=== PATIENT | male | born 1985 | race Hispanic/Latino ===

== ENCOUNTER 2018-06-05 12:43 | Emergency (ER) | payer OTHER ==
--- OUTSIDE RECORDS SUMMARY | 2018-06-05 12:45 | XMS REPORT ---
:1985 [facility] [address] [place] [address] Care Team Providers Name Role Phone Unavailable Unavailable Unavailable Problems This patient has no known problems. Allergies, Adverse Reactions, Alerts This patient has no known allergies or adverse reactions. Medications This patient has no known medications. Encounters Start End Encounter Admission Attending Care Care Encounter Date/Time Date/Time Type Type Clinicians Facility Department ID 2017-05-15 Inpatient [facility] MED [id number] 18:50:00
--- NOTE | 2018-06-05 13:33 | RAD REPORT ---
EXAM DESCRIPTION: Delia Headley (2 Views)06/05/2018 1:28 pm CLINICAL HISTORY: Cough COMPARISON: None FINDINGS: The lungs appear clear of acute infiltrate. The heart is normal size IMPRESSION: No acute abnormalities displayed
[2018-06-05 14:03] LABS: Absolute Lymphocytes (CBC) 1.1 K/uL (0.7-4.9); Absolute Monocytes 0.4 K/uL (0.1-1.3); Absolute Neutrophil 6.6 K/uL (1.8-8.0); Basophils % 0.2 % (0-1.3); Eosinophils % 0.6 % (0-4.4); Hematocrit 46.5 % (39.6-49.0); Lymphocytes % 13.4 % (15.3-44.8); MPV 8.8 fL (7.6-11.3); Monocytes % 4.4 % (3.3-12.3); RBC Red Blood Cell Count 5.37 M/uL (4.33-5.43)
[2018-06-05 14:24] LABS: BUN Blood Urea Nitrogen 10 mg/dL (7-18); Bicarbonate 30 mmol/L (21-32); Creatine Phosphokinase 191 U/L (39-308); Glucose Level 85 mg/dL (74-106); Potassium 4.2 mmol/L (3.5-5.1); Sodium Level 144 mmol/L (136-145); Troponin (Emerg Dept Use Only) < 0.02 ng/mL (0.0-0.045)
[2018-06-05] MEDS ORDERED: NA CHLORIDE 0.9% 1,000 ML ONE ×2 (14:32→15:07)
[2018-06-05] MEDS ORDERED: ONDANSETRON 4 MG (ODT) TAB ONE (14:32)
--- NOTE | 2018-06-05 16:45 | EKG ---
Test Date: 2018-06-05 Test Time: 13:39:42 Flotation Tank Operator: ANDREA MEASUREMENT RESULTS: Intervals: Rate: 83 AR: 138 QRSD: 92 QT: 360 QTc: 423 [place]: P: 33 AR: 138 QRS: 61 T: 21 INTERPRETIVE STATEMENTS: Normal sinus rhythm with sinus arrhythmia Normal ECG No previous ECG available for comparison Electronically Signed On 06-05-18 16:44:00 PROFESSOR OF MEDICINE by Shade Buenrostro
--- NOTE | 2018-06-05 18:08 | ER ---
Nurse's Notes [facility] Name: Woo Tracy Age: 33 yrs Sex: Male : 1985 Arrival Date: 06/05/2018 Time: 12:46 Bed 15 Private MD: None, None Diagnosis: Tachycardia, unspecified;Essential (primary) hypertension Presentation: 06/05 12:50 Presenting complaint: Productive cough with green sputum and headache x 1 week, N/V hb today. Pt reports home BP 129/111, HR 140. Transition of care: patient was not received from another setting of care. Onset of symptoms was June 05, 2018. Risk Assessment: Do you want to hurt yourself or someone else? Patient reports no desire to harm self or others. Care prior to arrival: None. 12:50 Method Of Arrival: Ambulatory hb 12:50 Acuity: VANESSA 3 hb 14:00 Initial Sepsis Screen: Does the patient meet any 2 criteria? No. Patient's initial ph sepsis screen is negative. Does the patient have a suspected source of infection? No. Patient's initial sepsis screen is negative. Historical: - Allergies: 12:52 No Known Allergies; hb - Home Meds: 12:52 unkown BP med [Active]; hb - PMHx: 12:52 Hypertension; hb - PSHx: 12:52 None; hb - Immunization history:: Adult Immunizations up to date. - Social history:: Smoking status: Patient/guardian denies using tobacco. - Ebola Screening: : No symptoms or risks identified at this time. Screenin:33 Abuse screen: Denies threats or abuse. Denies injuries from another. Nutritional ph screening: No deficits noted. Tuberculosis screening: No symptoms or risk factors identified. Fall Risk None identified. Assessment: 13:53 General: Appears in no apparent distress. comfortable, well groomed, well developed, ph well nourished, Behavior is calm, cooperative, appropriate for age, Denies fever. Pain: Complains of pain in right parietal area and right side of the back of head Quality of pain is described as pressure. Neuro: Oriented to. 15:30 Reassessment: Patient appears in no apparent distress at this time. Patient and/or ph family updated on plan of care and expected duration. Pain level reassessed. Patient is alert, oriented x 3, equal unlabored respirations, skin warm/dry/pink. 16:30 Reassessment: Patient appears in no apparent distress at this time. Patient and/or ph family updated on plan of care and expected duration. Pain level reassessed. Patient is alert, oriented x 3, equal unlabored respirations, skin warm/dry/pink. 17:30 Reassessment: Patient appears in no apparent distress at this time. Patient and/or ph family updated on plan of care and expected duration. Pain level reassessed. Patient is alert, oriented x 3, equal unlabored respirations, skin warm/dry/pink. Pty resting quietly, denies nausea or pain, awaiting results of repeat cardiac enzymes. 18:34 Reassessment: Patient appears in no apparent distress at this time. Patient and/or ph family updated on plan of care and expected duration. Pain level reassessed. Patient is alert, oriented x 3, equal unlabored respirations, skin warm/dry/pink. Pt states that he will follow up w/ strap machine operator, d/c home w/ family. Vital Signs: 12:52 BP 148 / 96; Pulse 116; Resp 18; Temp 98.5; Pulse Ox 100% on R/A; Pain 4/10; hb 14:34 BP 134 / 84; Pulse 91; Resp 18; Pulse Ox 98% ; ph 14:34 Pulse 130; ph 16:18 BP 123 / 83; Pulse 103; Resp 16; Pulse Ox 99% on R/A; ph 14:34 after vomiting ph ED Course: 12:46 Patient arrived in ED. sb2 12:47 None, None is Private Physician. sb2 12:52 Triage completed. hb 12:52 Arm band placed on left wrist. hb 12:53 [facility] snw 12:53 Benedicto Nix MD is Attending Physician. snw 13:25 X-ray completed. Patient tolerated procedure well. Patient moved to radiology via sw wheelchair. Patient moved back from radiology. 13:26 Chest Pa And Lat (2 Views) XRAY In Process Unspecified. EDMS 13:36 Jessica Infante, SHERRON is Primary Nurse. ph 13:44 EKG done, by java technical architect. reviewed by Junie VASQUEZ. dt2 13:46 Initial lab(s) drawn, by me, sent to lab. Inserted saline lock: 20 gauge in right [facility] antecubital area, using aseptic technique. Blood collected. 13:49 Flu and/or RSV swab sent to lab. [facility] 14:00 Patient has correct armband on for positive identification. Placed in gown. Bed in low ph position. Call light in reach. Side rails up X 1. [facility] on. Pulse ox on. NIBP on. Door closed. Noise minimized. Lights dimmed. Warm blanket given. 17:27 EKG done, by java technical architect. dt2 18:07 Shade Buenrostro MD is Referral Physician. snw 18:35 No provider procedures requiring assistance completed. IV discontinued, intact, ph bleeding controlled, No redness/swelling at site. Pressure dressing applied. Administered Medications: 14:20 Drug: NS 0.9% 1000 ml Route: IV; Rate: 1 bolus; Site: right antecubital; ph 18:38 Follow up: Response: No adverse reaction; IV Status: Completed infusion ph 14:20 Drug: Zofran 4 mg Route: PO; ph 18:38 Follow up: Response: No adverse reaction ph Outcome: 18:07 Discharge ordered by . snw 18:37 Discharged to home ambulatory, with family. ph 18:37 Condition: good 18:37 Discharge instructions given to patient, Instructed on discharge instructions, follow up and referral plans. Demonstrated understanding of instructions, follow-up care. 18:39 Patient left the ED. ph Signatures: Dispatcher [employer] EDMS Junie Rivera, EDELMIRA-C ELECTROMECHANICAL INSPECTOR-Csnw Jessica Infante RN SHERRON Jessica Peng Heather, RN RN Gayle Erickson 3 Mary Elam 2 Sharon Peguero 2
--- NOTE | 2018-06-05 18:08 | EDPHYS ---
Physician Documentation [facility] Name: Woo Tracy Age: 33 yrs Sex: Male : 1985 Arrival Date: 06/05/2018 Time: 12:46 Bed 15 Private MD: None, None ED Physician Benedicto Nix HPI: 06/05 13:02 This 33 yrs old Male presents to ER via Ambulatory with complaints of High snw Blood Pressure. 13:02 The patient has elevated blood pressure and discovered this at home, with a home snw device. Onset: The symptoms/episode began/occurred x 1 week with more elevated blood pressure and HR than normal. Associated signs and symptoms: Pertinent positives: headache, vomiting, palpitations. Severity of symptoms: At its worst the blood pressure was DBP > 100. The patient has not experienced similar symptoms in the past. It is unknown whether or not the patient has recently seen a physician. Historical: - Allergies: 12:52 No Known Allergies; hb - Home Meds: 12:52 unkown BP med [Active]; hb - PMHx: 12:52 Hypertension; hb - PSHx: 12:52 None; hb - Immunization history:: Adult Immunizations up to date. - Social history:: Smoking status: Patient/guardian denies using tobacco. - Ebola Screening: : No symptoms or risks identified at this time. ROS: 13:01 Constitutional: Negative for fever, chills, and weight loss, Eyes: Negative for injury, snw pain, redness, and discharge, ENT: Negative for injury, pain, and discharge, Neck: Negative for injury, pain, and swelling. 13:01 Respiratory: Negative for shortness of breath, cough, wheezing, and pleuritic chest pain. 13:01 Back: Negative for injury and pain, : Negative for injury, bleeding, discharge, and swelling, MS/Extremity: Negative for injury and deformity, Skin: Negative for injury, rash, and discoloration, Neuro: Negative for headache, weakness, numbness, tingling, and seizure. 13:01 Cardiovascular: Positive for palpitations, tachycardia, high blood pressure. 13:01 Abdomen/GI: Positive for vomiting. Exam: 13:00 Eyes: Pupils equal round and reactive to light, extra-ocular motions intact. Lids and snw lashes normal. Conjunctiva and sclera are non-icteric and not injected. Cornea within normal limits. Periorbital areas with no swelling, redness, or edema. ENT: Nares patent. No nasal discharge, no septal abnormalities noted. Tympanic membranes are normal and external auditory canals are clear. Oropharynx with no redness, swelling, or masses, exudates, or evidence of obstruction, uvula midline. Mucous membranes moist. Neck: Trachea midline, no thyromegaly or masses palpated, and no cervical lymphadenopathy. Supple, full range of motion without nuchal rigidity, or vertebral point tenderness. No Meningismus. Chest/axilla: Normal chest wall appearance and motion. Nontender with no deformity. No lesions are appreciated. Respiratory: Lungs have equal breath sounds bilaterally, clear to auscultation and percussion. No rales, rhonchi or wheezes noted. No increased work of breathing, no retractions or nasal flaring. Abdomen/GI: Soft, non-tender, with normal bowel sounds. No distension or tympany. No guarding or rebound. No evidence of tenderness throughout. Back: No spinal tenderness. No costovertebral tenderness. Full range of motion. Skin: Warm, dry with normal turgor. Normal color with no rashes, no lesions, and no evidence of cellulitis. MS/ Extremity: Pulses equal, no cyanosis. Neurovascular intact. Full, normal range of motion. Neuro: Awake and alert, GCS 15, oriented to person, place, time, and situation. Cranial nerves II-XII grossly intact. Motor strength 5/5 in all extremities. Sensory grossly intact. Cerebellar exam normal. Normal gait. 13:00 Constitutional: The patient appears alert, awake, uncomfortable. 13:00 Head/face: Noted is petechiae to upper cheeks s/p vomiting/cough. 13:00 Cardiovascular: Rate: tachycardic, Rhythm: regular, Heart sounds: normal. Vital Signs: 12:52 BP 148 / 96; Pulse 116; Resp 18; Temp 98.5; Pulse Ox 100% on R/A; Pain 4/10; hb 14:34 BP 134 / 84; Pulse 91; Resp 18; Pulse Ox 98% ; ph 14:34 Pulse 130; ph 16:18 BP 123 / 83; Pulse 103; Resp 16; Pulse Ox 99% on R/A; ph 14:34 after vomiting ph MDM: 12:54 Patient medically screened. snw 17:55 Data reviewed: vital signs, nurses notes. Data interpreted: Pulse oximetry: on room air snw is 99 %. Interpretation: normal. Counseling: I had a detailed discussion with the patient and/or guardian regarding: the historical points, exam findings, and any diagnostic results supporting the discharge/admit diagnosis, lab results, radiology results, the need for outpatient follow up. Special discussion: Based on the patient's history, exam, and Dx evaluation, there is no indication for emergent intervention or inpatient Tx. It is understood by the patient/guardian that if the Sx's persist or worsen they need to return immediately for re-evaluation. Based on the history and exam findings, there is no indication for further emergent testing or inpatient evaluation. I discussed with the patient/guardian the need to see the retirement benefits specialist for further evaluation of the symptoms. I discussed with the patient/guardian the need to see the primary care provider for further evaluation of the symptoms. ED course: Encouraged to f/u cardiology second to very strong family history of heart disease. 06/05 12:54 Order name: Flu; Complete Time: 14:22 snw 06/05 13:00 Order name: TSH; Complete Time: 14:28 snw 06/05 13:00 Order name: CBC with Diff; Complete Time: 14:13 snw 06/05 13:00 Order name: Chem 7; Complete Time: 14:28 snw 06/05 13:00 Order name: Troponin (emerg Dept Use Only); Complete Time: 14:28 snw 06/05 13:00 Order name: CPK; Complete Time: 14:28 snw 06/05 13:00 Order name: Chest Pa And Lat (2 Views) XRAY; Complete Time: 13:42 snw 06/05 13:01 Order name: EKG; Complete Time: 13:02 snw 06/05 13:01 Order name: EKG - Nurse/Tech; Complete Time: 13:51 snw 06/05 14:29 Order name: Recheck Vital Signs; Complete Time: 14:41 snw 06/05 17:03 Order name: Troponin (emerg Dept Use Only); Complete Time: 18:09 snw 06/05 17:03 Order name: EKG; Complete Time: 17:04 snw Administered Medications: 14:20 Drug: NS 0.9% 1000 ml Route: IV; Rate: 1 bolus; Site: right antecubital; ph 18:38 Follow up: Response: No adverse reaction; IV Status: Completed infusion ph 14:20 Drug: Zofran 4 mg Route: PO; ph 18:38 Follow up: Response: No adverse reaction ph Disposition: 19:00 Co-signature as Attending Physician, Benedicto Nix MD. rn Disposition: 06/05/18 18:07 Discharged to Home. Impression: Tachycardia, unspecified, Essential (primary) hypertension. - Condition is Stable. - Discharge Instructions: Hypertension, Heart Disease Prevention, DASH Eating Plan, Rehydration, Adult, Managing Your Hypertension. - Work release form, Medication Reconciliation Form, Thank You Letter, Antibiotic Education, Prescription Opioid Use form. - Follow up: Private Physician; When: 2 - 3 days; Reason: Recheck today's complaints, Continuance of care, Re-evaluation by your physician. Follow up: Emergency Department; When: As needed; Reason: Worsening of condition. Follow up: Shade Buenrostro; When: 1 - 2 days; Reason: Recheck today's complaints, Continuance of care. Signatures: Dispatcher [employer] EDMS Junie Rivera, RANGE MECHANIC-C RANGE MECHANIC-Csnw Benedicto Nix MD MD rn Hall, Patricia, RN RN ph Baxter, Heather, RN RN Corrections: (The following items were deleted from the chart) 18:39 18:07 06/05/2018 18:07 Discharged to Home. Impression: Tachycardia, unspecified; ph Essential (primary) hypertension. Condition is Stable. Discharge Instructions: Hypertension, Heart Disease Prevention, DASH Eating Plan, Rehydration, Adult, Managing Your Hypertension. Forms are Work release form, Medication Reconciliation Form, Thank You Letter, Antibiotic Education, Prescription Opioid Use. Follow up: Private Physician; When: 2 - 3 days; Reason: Recheck today's complaints, Continuance of care, Re-evaluation by your physician. Follow up: Emergency Department; When: As needed; Reason: Worsening of condition. Follow up: Shade Buenrostro; When: 1 - 2 days; Reason: Recheck today's complaints, Continuance of care. snw
--- NOTE | 2018-06-05 20:32 | EKG ---
Test Date: 2018-06-05 Test Time: 17:16:05 Paralegal: ANDREA MEASUREMENT RESULTS: Intervals: Rate: 103 MT: 132 QRSD: 90 QT: 350 QTc: 458 [place]: P: 42 MT: 132 QRS: 65 T: 10 INTERPRETIVE STATEMENTS: Sinus tachycardia Otherwise normal ECG Compared to ECG 06/05/2018 13:39:42 Sinus rhythm no longer present Sinus arrhythmia no longer present Electronically Signed On 06-05-18 20:31:30 IS TECHNICIAN by Shade Buenrostro
== END 2018-06-05 18:39 | disposition home or self-care (01) ==
LOC: ER 12:43
DX: I10 Essential (primary) hypertension (principal); R00.0 Tachycardia, unspecified; Z79.899 Other long term (current) drug therapy
CPT/HCPCS: 36415; 71046; 80048; 82550; 84443; 84484; 85025; 87804; 93005; 96360; 96361; 99285; J7030